=== PATIENT | female | born 1985 | race Caucasian/White ===

== ENCOUNTER 2018-09-19 11:33 | Outpatient (CLI) | payer OTHER, SELFPAY ==
[2018-09-19 12:11] LABS: Kit/Specimen SENT
== END 2018-09-19 11:53 ==
PROVIDERS: Visit Provider Advanced Practice Midwife
DX: Z34.92 Encounter for supervision of normal pregnancy, unspecified, second trimester (principal)
CPT/HCPCS: 36415; 80307

== ENCOUNTER 2018-09-19 14:01 | Outpatient (REF) | payer OTHER, SELFPAY ==
[2018-09-19 14:38] LABS: *AMPHETAMINES SCREEN URINE Negative (Negative); *BARBITURATES SCREEN URINE Negative (Negative); *BENZODIAZEPINES SCREEN URINE Negative (Negative); Cannabinoids THC Negative (Negative); Cocaine Screen,Urine Negative (Negative); METHADONE URINE SCREEN Negative (Negative); OPIATES URINE SCREEN Negative (Negative)
[2018-09-19 14:41] LABS: Tricyclic Antidepressants Negative (Negative)
[2018-09-23 10:00] LABS: Buprenorphine Negative; Norbuprenorphine Negative
== END 2018-09-19 14:21 ==
LOC: LBN 14:01
PROVIDERS: Visit Provider Advanced Practice Midwife
DX: Z34.90 Encounter for supervision of normal pregnancy, unspecified, unspecified trimester (principal)
CPT/HCPCS: 80307

== ENCOUNTER 2018-10-14 01:01 | Outpatient (CLI) | payer OTHER, SELFPAY ==
--- NOTE | 2018-10-14 13:31 | DI.US_ITS ---
Predicted Gestational Age: Indication/History: SURVEY,Z34.90 18.2 Wks Range: 17.2 to 19.2 Prior US done on: Determined by: First US LMP History EDC by prior US: 03/15/19 For multiple gestations: Baby PLACENTA: Grade: I Location: Anterior X Posterior PRESENTATION: RT LT LOW LYING PREVIA Cephalic Trans (Head RT LT ) Varied X Breech BIOMETRY: Anatomy Identified: BPD: 41 mm 18.4 wks 4 chamber Heart X Heart Rate 160 BPM HC: 157 mm 18.4 wks RVOT X Ventricles X AC: 131 mm 18.4 wks LVOT X Post fossa X FL: 28 mm 18.3 wks Stomach X Nose X Bladder X Lips X Cisterna Magna: 2.6 mm CI: 76 Kidneys X Palate X Cerebellum: 1.82 mm 3 vessel cord X Spine X EFW: [address] % Cord Insertion NS= not seen Composite Age (US) 18.4 wks Many abnormalities cannot be diagnosed. A normal exam does not exclude congenital abnormality. EDC by US 03/13/19 Amniotic Fluid Index: Normal COMMENTS: RUQ: LUQ: RLQ: LLQ: Total: cm Biophysical Profile: Score 0/2 ASHLEY (>2cm) Respirations (>30 sec) Body flexion/extension Extremity flexion/extension TOTAL SCORE OB ultrasound was performed utilizing second trimester protocol. biometry is consistent with a gestational age of 18 weeks 4 days and an EDC of 03/13/19. Placenta is anterior with no evidence of placenta previa. There is a normal quantity of amniotic fluid. anomaly screen is within normal limits as per the attached worksheet.
== END 2018-10-14 01:21 ==
PROVIDERS: Visit Provider Advanced Practice Midwife
DX: Z34.92 Encounter for supervision of normal pregnancy, unspecified, second trimester (principal)
CPT/HCPCS: 76805

== ENCOUNTER 2018-12-27 02:00 | Outpatient (CLI) | payer OTHER, SELFPAY ==
[2018-12-27 09:45] LABS: Glucose,1 Hr (Glucola) 110 mg/dL (80-140)
[2018-12-27 09:46] LABS: HCT 36.4 % (36.0-46.0); HGB 11.6 g/dL (12.0-15.5); Mean Corp. HGB Concentration 31.9 g/dL (32.0-36.0); Mean Corpuscular Hemoglobin 26.5 pg (27.0-33.0); Mean Corpuscular Volume 83.3 fL (80-95); Mean Platelet Volume 8.5 fL (8.0-11.0); Platelet Count 344 x1000/uL (130-400); RBC 4.37 m/cumm (4.00-5.20); RBC Distribution Width 14.6 % (11.7-14.6); White Blood Cell Count 9.72 k/cumm (4.4-10.8)
== END 2018-12-27 02:20 ==
PROVIDERS: PCP Family Medicine; Visit Provider Advanced Practice Midwife
DX: Z34.93 Encounter for supervision of normal pregnancy, unspecified, third trimester (principal)
CPT/HCPCS: 36415; 82950; 85027

== ENCOUNTER 2019-01-24 08:54 | Outpatient (CLI) | payer OTHER, SELFPAY | END 2019-01-24 09:14 | PROVIDERS: PCP Family Medicine; Visit Provider Advanced Practice Midwife | DX: Z34.93 Encounter for supervision of normal pregnancy, unspecified, third trimester (principal) | CPT/HCPCS: 36415; 86850; 86900; 86901 ==

== ENCOUNTER 2019-02-21 11:38 | Outpatient (REF) | payer OTHER, SELFPAY | END 2019-02-21 11:58 | LOC: LBN 11:38 | PROVIDERS: PCP Family Medicine; Visit Provider Advanced Practice Midwife | DX: Z34.93 Encounter for supervision of normal pregnancy, unspecified, third trimester (principal); Z36.85 Encounter for antenatal screening for Streptococcus B | CPT/HCPCS: 87081 ==

== ENCOUNTER 2019-02-28 09:49 | Outpatient (CLI) | payer OTHER, SELFPAY ==
[2019-02-28 10:55] LABS: HCT 37.8 % (36.0-46.0); HGB 12.1 g/dL (12.0-15.5); Mean Corpuscular Hemoglobin 26.2 pg (27.0-33.0); Mean Corpuscular Volume 81.8 fL (80-95); Mean Platelet Volume 8.8 fL (8.0-11.0); Platelet Count 318 x1000/uL (130-400); RBC 4.62 m/cumm (4.00-5.20); RBC Distribution Width 14.9 % (11.7-14.6); White Blood Cell Count 9.75 k/cumm (4.4-10.8)
[2019-02-28 11:13] LABS: ALT 23 U/L (14-59); AST 18 U/L (15-37); Albumin 2.7 g/dL (3.4-5.0); Alkaline Phosphatase 119 U/L (46-116); Anion Gap 9.4 mmol/L (3-11); BUN 9 mg/dL (7-18); Bilirubin, Total 0.3 mg/dL (0.2-1.0); CO2 22.6 mmol/L (21.0-32.0); CREATININE 0.42 mg/dL (0.55-1.02); Calcium 8.3 mg/dL (8.5-10.1); Chloride 103 mmol/L (98-107); Glucose 73 mg/dL (74-106); Potassium 3.8 mmol/L (3.5-5.1); Sodium 135 mmol/L (136-145); Total Protein 6.9 g/dL (6.4-8.2); Uric Acid 4.2 mg/dL (2.6-6.0)
[2019-02-28 12:58] LABS: COMMENT (LAB VIEW ONLY) 37.47 mg/dL; PROTEIN 9.5 mg/dL; Prot/Crea Ur Ratio 0.25
== END 2019-02-28 10:09 ==
PROVIDERS: Advanced Practice Midwife; PCP Family Medicine; Visit Provider Advanced Practice Midwife
DX: Z86.14 Personal history of Methicillin resistant Staphylococcus aureus infection (principal); O14.90 Unspecified pre-eclampsia, unspecified trimester; O13.3 Gestational [pregnancy-induced] hypertension without significant proteinuria, third trimester; Z3A.37 37 weeks gestation of pregnancy
CPT/HCPCS: 36415; 80053; 85027; 87081; 59025; 82565; 84156; 84550

== ENCOUNTER 2019-03-01 08:42 | Inpatient (IN) | payer OTHER, SELFPAY ==
[2019-03-01 09:49] LABS: HCT 36.7 % (36.0-46.0); HGB 11.8 g/dL (12.0-15.5); Mean Corp. HGB Concentration 32.2 g/dL (32.0-36.0); Mean Corpuscular Hemoglobin 26.3 pg (27.0-33.0); Mean Corpuscular Volume 81.7 fL (80-95); Mean Platelet Volume 8.8 fL (8.0-11.0); Platelet Count 316 x1000/uL (130-400); RBC 4.49 m/cumm (4.00-5.20); RBC Distribution Width 14.9 % (11.7-14.6); White Blood Cell Count 8.37 k/cumm (4.4-10.8)
[2019-03-01] MEDS: miSOPROStol 25 MCG TAB (10:58)
[2019-03-01] MEDS: miSOPROStol 25 MCG TAB PO (15:12)
[2019-03-01] MEDS: miSOPROStol 25 MCG TAB 50 MCG PO ×2 (19:33→23:51)
[2019-03-02] MEDS: Lactated Ringers 1,000 ML 125 ML IV (15:06)
[2019-03-02] MEDS: Ibuprofen 600 MG TAB PO (22:43)
[2019-03-02] MEDS: Acetaminophen 325 MG TAB 650 MG PO (22:43)
[2019-03-03 07:15] LABS: HCT 33.5 % (36.0-46.0); HGB 10.5 g/dL (12.0-15.5); Mean Corp. HGB Concentration 31.3 g/dL (32.0-36.0); Mean Corpuscular Hemoglobin 25.8 pg (27.0-33.0); Mean Corpuscular Volume 82.3 fL (80-95); Mean Platelet Volume 8.9 fL (8.0-11.0); Platelet Count 293 x1000/uL (130-400); RBC 4.07 m/cumm (4.00-5.20); RBC Distribution Width 14.9 % (11.7-14.6); White Blood Cell Count 14.65 k/cumm (4.4-10.8)
[2019-03-03] MEDS: Ibuprofen 600 MG TAB PO (08:49)
[2019-03-03] MEDS: Acetaminophen 325 MG TAB 650 MG PO (08:50)
[2019-03-03] MEDS: Docusate Sodium 100 MG CAP PO (10:25)
== END 2019-03-04 11:50 | disposition home or self-care (01) | DRG 807 ==
PROVIDERS: Admitting Provider Advanced Practice Midwife; PCP Family Medicine; Visit Provider Advanced Practice Midwife
DX: O70.0 First degree perineal laceration during delivery (principal); Z37.0 Single live birth; O13.4 Gestational [pregnancy-induced] hypertension without significant proteinuria, complicating childbirth; Z3A.38 38 weeks gestation of pregnancy; O32.2XX0 Maternal care for transverse and oblique lie, not applicable or unspecified; O69.1XX0 Labor and delivery complicated by cord around neck, with compression, not applicable or unspecified; O99.344 Other mental disorders complicating childbirth; F41.9 Anxiety disorder, unspecified; Z86.14 Personal history of Methicillin resistant Staphylococcus aureus infection; Z87.59 Personal history of other complications of pregnancy, childbirth and the puerperium; Z39.1 Encounter for care and examination of lactating mother
CPT/HCPCS: 36415; 85027; 86850; 86900; 86901; J3490

== ENCOUNTER 2020-12-06 14:30 | Outpatient (REF) | payer MEDICAID, SELFPAY ==
--- NOTE | 2020-12-06 14:00 | PAPFT_PTH ---
PATIENT: Giovanna Lang LOC: [facility] U#:[id number] AGE/SX: 35/F ROOM: RE12/06/[address]: ELLA Reynoso : 1985 BED: DIS: 12/06/2020 SPEC #: [id number] RECD: 12/06/20 18:32 STATUS: DAVID REQ #: [id number] JOSS: 12/06/20 14:[address]: Samantha Marie DEPT: [facility] Cytology RECD BY: Barbara Thomas ENTERED: 12/06/20 18:33 SP TYPE: PAPFT OTHR DR: Marcy Larios Tissues: 1 - CX/ENDOCX FOR PAP SMEARS Procedures: PAP THIN PREP/UVM Screening HPV DNA PROBE Comments: [id number]
== END 2020-12-06 14:31 | disposition home or self-care (01) ==
LOC: LBN 14:30
PROVIDERS: PCP Family Medicine; Visit Provider Nurse Practitioner Family
DX: Z12.4 Encounter for screening for malignant neoplasm of cervix (principal); Z11.51 Encounter for screening for human papillomavirus (HPV); R87.810 Cervical high risk human papillomavirus (HPV) DNA test positive
CPT/HCPCS: 88142; 87624

== ENCOUNTER 2020-12-29 16:20 | Outpatient (REF) | payer MEDICAID, SELFPAY ==
--- NOTE | 2020-12-29 15:40 | ENDO_PTH ---
PATIENT: Giovanna Lang LOC: [facility] U#:[id number] AGE/SX: 35/F ROOM: RE12/29/[address]: Shiela Brown DO : 1985 BED: DIS: 12/29/2020 SPEC #: [id number] RECD: 12/29/20 17:43 STATUS: DAVID REQ #: [id number] JOSS: 12/29/20 15:[address]: Shiela Brown DEPT: Surgical Specimen RECD BY: Barbara Thomas ENTERED: 12/29/20 17:43 SP TYPE: Endo OTHR DR: Marcy Larios Tissues: 1 - ENDOCERVICAL BX/CURRETTE Procedures: GROSS AND MICRO LEVEL 4 Comments: [id number]
== END 2020-12-29 16:21 | disposition home or self-care (01) ==
LOC: LBN 16:20
PROVIDERS: PCP Family Medicine; Visit Provider Obstetrics & Gynecology
DX: Z87.42 Personal history of other diseases of the female genital tract (principal)
CPT/HCPCS: 88305

== ENCOUNTER 2021-12-13 12:07 | Outpatient (REF) | payer MEDICAID, SELFPAY ==
--- NOTE | 2021-12-13 11:45 | PAPFT_PTH ---
PATIENT: Giovanna Lang LOC: [facility] U#:[id number] AGE/SX: 36/F ROOM: RE12/13/[address]: Mona Crow NP : 1985 BED: DIS: 12/13/2021 SPEC #: [id number] RECD: 12/13/21 18:12 STATUS: DVAID REQ #: [id number] JOSS: 12/13/21 11:[address]: Mignon KENT,Mona DEPT: [facility] Cytology RECD BY: Barbara Thomas ENTERED: 12/13/21 18:13 SP TYPE: PAPFT OTHR DR: Marcy Larios Tissues: 1 - CX/ENDOCX FOR PAP SMEARS Procedures: PAP THIN PREP/UVM Screening HPV DNA PROBE Comments: [id number]
== END 2021-12-13 12:08 | disposition home or self-care (01) ==
LOC: LBN 12:07
PROVIDERS: PCP Family Medicine; Visit Provider Nurse Practitioner Women's Health
DX: Z12.4 Encounter for screening for malignant neoplasm of cervix (principal); N76.0 Acute vaginitis; Z11.51 Encounter for screening for human papillomavirus (HPV)
CPT/HCPCS: 88142; 87624

== ENCOUNTER → 2022-02-10 01:03 | Outpatient (CLI) | payer MEDICAID, SELFPAY ==
--- NOTE | 2022-02-10 08:00 | DI.US_ITS ---
Exam(s) US TRANSVAGINAL EXAM: US TRANSVAGINAL CLINICAL HISTORY: ABNL UTERINE BLEEDING,N93.9 TECHNIQUE: Ultrasound of the pelvis was performed transvaginal technique.. COMPARISON: US US OB 2-3 trimester from 10/14/2018 FINDINGS: UTERUS: Appears unremarkable. Measures 8.8 cm length x 4.1 cm AP x 5.7 cm wide. There are no uterine fibroids. Endometrial thickness measures 3 mm. There is no fluid in the endometrial canal. CERVIX: There are no obvious nabothian cysts. RIGHT OVARY: Measures 2.4 x 2.3 x 1.4 cm Contains a cyst measuring 1.3 x 1.4 x0.6 cm which appears to be a probable dominant follicle. LEFT OVARY: Measures 2.7 x 1.2 x 2.4 cm No significant cysts nor masses evident in the left ovary. CUL-DE-SAC: No free fluid evident. IMPRESSION: 1. Normal appearing uterus and endometrium. 2. Small cyst in the right ovary with measurements as above, probably dominant follicle. No extraova shaun adnexal masses. 3. No free fluid evident in the adnexal regions and cul-de-sac. DATA REPOSITORY:
== END ==
PROVIDERS: PCP Family Medicine; Visit Provider Nurse Practitioner Women's Health
DX: N83.201 Unspecified ovarian cyst, right side (principal)
CPT/HCPCS: 76830

== ENCOUNTER 2022-02-10 12:29 | Outpatient (CLI) | payer MEDICAID, SELFPAY ==
[2022-02-10 13:12] LABS: TSH (W/Ref FT4) 1.68 uIU/mL (0.36-3.74)
== END 2022-02-10 12:30 | disposition home or self-care (01) ==
LOC: LBO 12:32
PROVIDERS: PCP Family Medicine; Visit Provider Nurse Practitioner Women's Health
DX: N93.8 Other specified abnormal uterine and vaginal bleeding (principal); R53.83 Other fatigue
CPT/HCPCS: 36415; 84443

== ENCOUNTER 2024-10-16 16:15 | Outpatient (REF) | payer SELFPAY ==
[2024-10-20 13:29] LABS: Chlamydia Result Negative (Negative); GC Result Negative (Negative)
== END 2024-10-16 16:16 | disposition home or self-care (01) ==
LOC: LBN 16:15
PROVIDERS: PCP Family Medicine; Visit Provider Obstetrics & Gynecology
DX: Z11.3 Encounter for screening for infections with a predominantly sexual mode of transmission (principal)
CPT/HCPCS: 87491; 87591; 87480; 87510; 87660